=== PATIENT | female | born 1990 | race Caucasian/White ===

== ENCOUNTER 2017-04-28 07:29 | Emergency (ER) | payer OTHER, BC ==
[~2017-04-28] VITALS: Wt 100.3 kg
[~2017-04-28 07:29] MED LIST: BACTDS PO; DICL50TA11 PO; HYDR-3498 PO
[2017-04-28 08:33] LABS: BASOPHIL # 0.1 10^3/ul (0.0-0.1); BASOPHILS % 0.4 % (0.0-2.0); EOSINOPHILS # 0.1 10^3/ul (0.0-0.5); EOSINOPHILS % 1.2 % (0.0-7.0); HEMATOCRIT 40.3 % (37.0-47.0); HEMOGLOBIN 14.2 g/dl (12.0-16.0); LYMPHOCYTES # 2.5 10^3/ul (0.8-2.9); LYMPHOCYTES % 22.4 % (15.0-51.0); MEAN CORPUSCULAR HEMOGLOBIN 29.6 pg (29.0-33.0); MEAN CORPUSCULAR HGB CONC 35.2 g/dl (32.0-37.0); MEAN CORPUSCULAR VOLUME 84.1 fl (82.0-101.0); MEAN PLATELET VOLUME 9.8 fl (7.4-10.4); MONOCYTE # 0.6 10^3/ul (0.3-0.9); MONOCYTES % 5.5 % (0.0-11.0); NEUTROPHIL # 7.9 10^3/ul (1.6-7.5); NEUTROPHILS % 69.3 % (39.0-77.0); PLATELET COUNT 236 10^3/UL (140-415); RED BLOOD COUNT 4.79 10^6/ul (4.20-5.40); WHITE BLOOD COUNT 11.4 10^3/ul (4.8-10.8)
--- NOTE | 2017-04-28 08:42 | RADRPT ---
PROCEDURE: First trimester obstetrical ultrasound. CLINICAL INDICATION: , pelvic pain TECHNIQUE: Transabdominal morales scale and color Doppler ultrasound of the uterus of less than 14 weeks gestation (first trimester). COMPARISON: None available FINDINGS: A single intrauterine gestation is present. No evidence of extrauterine gestation. Mean sac diameter: 1.91 cm [place]-rump length: 0.40 cm heart rate: 123 Beats per minute Trace subchorionic hemorrhage. Normal size ovaries are present with intact blood flow. Free fluid: None. IMPRESSION: Single intrauterine gestation with an estimated gestational age of 6 weeks 3 days by ultrasound jack alexander. Trace subchorionic hemorrhage. RPTAT: AADD .Ramone Perez MD, MD Date Time Electronically viewed and signed by .Ramone Perez MD, on 04/28/2017 08:42 .B/
[2017-04-28 08:44] LABS: ADD UMIC NO; UR ASCORBIC ACID NEGATIVE (NEGATIVE); UR BILIRUBIN (Dip) NEGATIVE (NEGATIVE); UR BLOOD (Dip) NEGATIVE (NEGATIVE); UR CLARITY CLEAR (CLEAR); UR COLOR YELLOW (YELLOW); UR GLUCOSE (Dip) NEGATIVE (NEGATIVE); UR KETONES (Dip) NEGATIVE (NEGATIVE); UR LEUKOCYTE ESTERASE (Dip) NEGATIVE Leu/ul (NEGATIVE); UR NITRITE (Dip) NEGATIVE (NEGATIVE); UR SPECIFIC GRAVITY (Dip) 1.012 (1.003-1.030); UR TOTAL PROTEIN (Dip) NEGATIVE (NEGATIVE); UR UROBILINOGEN (Dip) NEGATIVE (NEGATIVE)
--- NOTE | 2017-04-28 11:20 | ERD ---
ER Documentation Chief Complaint Chief Complaint VAG BLEED X 1 DAY 6 WEEKS PREG; DENIES PELVIC PAIN HPI This is a 26-year-old female who presents emergency department today for vaginal spotting that started this morning. States she has some lower crampy pelvic pain. States she has not taken any medication for the pain. States that she was recently told she was . States that her [employer] is Dr. Garay. Denies any fevers or chills, vomiting. ROS All systems reviewed and are negative except as per history of present illness. Medications Home Meds Active Scripts Acetaminophen* (Tylophen*) 500 Mg Capsule, 1 CAP PO Q6H Y for PAIN AND OR ELEVATED TEMP, #30 CAP Prov:LUZ ALCANTAR PA-C 04/28/17 Diclofenac Sodium* (Diclofenac Sodium*) 50 Mg Tablet., 50 MG PO TID, #10 TAB Prov:ERIN JEROME DO 03/21/15 Hydrocodone Bit-Acetaminophen* ([place]*) 5-325 Mg Tab, 1 TAB PO Q6 Y for PAIN, # 7 TAB Prov:ERIN JEROME DO 03/21/15 Sulfamethoxazole-Trimethoprim* (Bactrim* DS) 800-160 Mg Tab, 1 TAB PO BID for 10 Days, TAB Prov:JAS SALDANA PA-C 11/27/14 Allergies Allergies: Coded Allergies: No Known Allergy (Unverified , 04/28/17) PMhx/Soc History of Surgery: No Anesthesia Reaction: No Hx Neurological Disorder: No Hx Respiratory Disorders: No Hx Cardiac Disorders: No Hx Psychiatric Problems: No Hx Miscellaneous Medical Probl: No Hx Alcohol Use: No Hx Substance Use: No Hx Tobacco Use: No Smoking Status: Never smoker Physical Exam Vitals Vital Signs Date Time Temp Pulse Resp B/P Pulse Ox O2 Delivery O2 Flow Rate FiO2 04/28/17 07:32 98.6 92 18 134/90 99 Physical Exam Const: obese, NAD Head: Atraumatic Eyes: Normal Conjunctiva ENT: Normal External Ears, Nose and Mouth. Neck: Full range of motion..~ No meningismus. Resp: Clear to auscultation bilaterally Cardio: Regular rate and rhythm, no murmurs Abd: Soft, mild pelvic tenderness non distended. Normal bowel sounds. No tenderness at [place] Skin: No petechiae or rashes Back: No midline or flank tenderness Ext: No cyanosis, or edema Neur: Awake and alert Psych: Normal Mood and Affect Result Diagram: 04/28/17 0820 Results 24 hrs Laboratory Tests Test 04/28/17 08:20 04/28/17 08:25 White Blood Count 11.410^3/ul Red Blood Count 4.7910^6/ul Hemoglobin 14.2g/dl Hematocrit 40.3% Mean Corpuscular Volume 84.1fl Mean Corpuscular Hemoglobin 29.6pg Mean Corpuscular Hemoglobin Concent 35.2g/dl Red Cell Distribution Width 12.0% Platelet Count 65214^3/UL Mean Platelet Volume 9.8fl Neutrophils % 69.3% Lymphocytes % 22.4% Monocytes % 5.5% Eosinophils % 1.2% Basophils % 0.4% Nucleated Red Blood Cells % 0.0/100WBC Neutrophils # 7.910^3/ul Lymphocytes # 2.510^3/ul Monocytes # 0.610^3/ul Eosinophils # 0.110^3/ul Basophils # 0.110^3/ul Nucleated Red Blood Cells # 0.010^3/ul Beta HCG, Quantitative 04245.0mIU/ml Urine Color YELLOW Urine Clarity CLEAR Urine pH 5.0 Urine Specific [place] 1.012 Urine Ketones NEGATIVEmg/dL Urine Nitrite NEGATIVEmg/dL Urine Bilirubin NEGATIVEmg/dL Urine Urobilinogen NEGATIVEmg/dL Urine Leukocyte Esterase NEGATIVELeu/ul Urine Hemoglobin NEGATIVEmg/dL Urine Glucose NEGATIVEmg/dL Urine Total Protein NEGATIVEmg/dl DIAGNOSTIC IMAGING REPORT Patient: OSMANY GRAHAM : 1990 Age: 26 Sex: F [id number] [id number] DOS: 04/28/17 0759 Ordering MD: LUZ ALCANTAR PA-C Location: [facility] Room/Bed: PROCEDURE: First trimester obstetrical ultrasound. CLINICAL INDICATION: , pelvic pain TECHNIQUE: Transabdominal morales scale and color Doppler ultrasound of the uterus of less than 14 weeks gestation (first trimester). COMPARISON: None available FINDINGS: A single intrauterine gestation is present. No evidence of extrauterine gestation. Mean sac diameter: 1.91 cm [place]-rump length: 0.40 cm heart rate: 123 Beats per minute Trace subchorionic hemorrhage. Normal size ovaries are present with intact blood flow. Free fluid: None. IMPRESSION: Single intrauterine gestation with an estimated gestational age of 6 weeks 3 days by ultrasound criteria. Trace subchorionic hemorrhage. RPTAT: AADD .Ramone Perez MD, MD Date Time Electronically viewed and signed by .Ramone Perez MD, on 04/28/2017 08:42 .B/ CC: LUZ ALCANTAR PA-C Procedures/[facility] This is a 26-year-old female who presents to the emergency department today complaining of vaginal bleeding. Patient states she is approximately 6 weeks . Given this I did obtain a complete OB workup. Laboratory work shows a very mildly elevated white blood cell count 11.4. She is not anemic. Platelets are within normal limits. UA is negative for infection. Beta quant hCG 85910 Rh status A + Ultrasound shows a single intrauterine gestation with an estimated gestational age of 6 weeks and 3 days by ultrasound criteria. heart rate is 123 bpm. There is trace subchorionic hemorrhage. There is no free fluid. Patient symptoms at this time is consistent with vaginal bleeding in early . Other differentials to consider early normal versus early failed versus placenta previa versus subchorionic hemorrhage. Patient is afebrile and otherwise well-appearing. I have low suspicion for ectopic , tubo ovarian abscess, ovarian torsion. Patient declined Tylenol here in the emergency department. She will be given a prescription for home. I have explained the results to the patient. She may follow-up with Dr. Garay/ At this time the patient is stable for discharge and outpatient management. Patient should follow up with their PCP in the next 1-2 days. They may return to the emergency department sooner for any persistent or worsening of symptoms. Patient understood and agreed with the plan. Departure Diagnosis: Primary Impression: Vaginal bleeding in patient at less than 20 weeks gestation Condition: Fair LUZ ALCANTAR PA-C Apr 28, 2017 11:20
[2017-04-28] MEDS ORDERED: ACET500C5 PO (11:21)
== END 2017-04-28 11:31 | disposition home or self-care (01) ==
LOC: FTE 07:29
DX: O20.9 Hemorrhage in early pregnancy, unspecified (principal); R10.2 Pelvic and perineal pain; Z3A.01 Less than 8 weeks gestation of pregnancy
CPT/HCPCS: 36415; 76801; 81003; 84702; 85025; 86900; 86901

== ENCOUNTER 2017-10-04 04:35 | Outpatient (CLI) | END 2017-10-04 09:45 | disposition home or self-care (01) ==

== ENCOUNTER 2017-10-31 08:34 | Outpatient (CLI) | END 2017-10-31 10:15 | disposition home or self-care (01) ==

== ENCOUNTER 2017-11-07 11:02 | Outpatient (CLI) | END 2017-11-07 14:40 | disposition home or self-care (01) ==

== ENCOUNTER 2017-11-26 17:18 | Inpatient (IN) | END 2017-11-30 19:00 | disposition home or self-care (01) | DRG 765 ==